=== PATIENT | female | born 1940 | race Caucasian/White ===

== ENCOUNTER → 2018-01-28 | Outpatient (CLI) | payer MEDICARE, BC | LOC: COL.RAD 12:30 | DX: M48.062 Spinal stenosis, lumbar region with neurogenic claudication (principal); M41.86 Other forms of scoliosis, lumbar region ==

== ENCOUNTER → 2018-02-17 | Outpatient (CLI) | payer MEDICARE, BC | LOC: SUN.DIA | DX: E11.40 Type 2 diabetes mellitus with diabetic neuropathy, unspecified (principal); E78.5 Hyperlipidemia, unspecified; I10 Essential (primary) hypertension; E66.9 Obesity, unspecified; Z68.38 Body mass index [BMI] 38.0-38.9, adult; Z71.3 Dietary counseling and surveillance | CPT/HCPCS: G0108 ==

== ENCOUNTER → 2018-09-08 | Outpatient (CLI) | payer MEDICARE, BC | LOC: COL.RAD 10:41 | DX: M19.011 Primary osteoarthritis, right shoulder (principal) | CPT/HCPCS: J3301; Q9967 ==

== ENCOUNTER → 2019-10-04 | Outpatient (CLI) | payer MEDICARE, BC | LOC: COL.RAD 10-03 07:30 | DX: G20 Parkinson's disease (principal); G60.9 Hereditary and idiopathic neuropathy, unspecified; H53.9 Unspecified visual disturbance; I67.82 Cerebral ischemia ==